=== PATIENT | male | born 1960 | race Caucasian/White ===

== ENCOUNTER 2020-08-31 15:20 | Outpatient (REF) | payer OTHER, SELFPAY ==
--- NOTE | 2020-08-31 15:24 | US_ITS ---
EXAMINATION: US RETROPERITONEAL LIMITED (RENAL ONLY) CLINICAL INFORMATION: Hematuria. COMPARISON: None TECHNIQUE: Real-time imaging of the kidneys. FINDINGS: RIGHT KIDNEY: 10.8 x 6.1 x 5.8 cm (SAG x AP x TRV). The kidney is normal in size, contour, and echogenicity. Renal cortical thickness is normal. No calculi or focal parenchymal lesions. No hydronephrosis. LEFT KIDNEY: 11.9 x 6.1 x 5.7 cm (SAG x AP x TRV). The kidney is normal in size, contour, and echogenicity. Renal cortical thickness is normal. No calculi or focal parenchymal lesions. No hydronephrosis. US/US renal BI IMPRESSION: Unremarkable kidney ultrasound.
== END 2020-08-31 15:21 | disposition home or self-care (01) ==
LOC: HO.HMGCX 15:20
PROVIDERS: PCP Internal Medicine; Visit Provider Internal Medicine
DX: R31.0 Gross hematuria (principal)
CPT/HCPCS: 76775

== ENCOUNTER → 2020-09-22 13:57 | Outpatient (BNVA) | payer OTHER, SELFPAY | PROVIDERS: PCP Internal Medicine; Visit Provider Urology | DX: R36.1 Hematospermia (principal); R31.9 Hematuria, unspecified | CPT/HCPCS: 81002 ==

== ENCOUNTER 2020-10-07 06:42 | Outpatient (REF) | payer OTHER, SELFPAY ==
[2020-10-07 11:42] LABS: Blood Urea Nitrogen 17 mg/dL (9-16); Estimated Glomerular Filt Rate > 60
== END 2020-10-07 06:43 | disposition home or self-care (01) ==
LOC: HO.HMGCLDS 06:42
PROVIDERS: PCP Internal Medicine; Visit Provider Urology
DX: R31.9 Hematuria, unspecified (principal)
CPT/HCPCS: 36415; 82565; 84520

== ENCOUNTER 2020-10-14 13:48 | Outpatient (REF) | payer OTHER, SELFPAY ==
--- NOTE | ~2020-10-14 | CT_ITS ---
EXAMINATION: CT ABDOMEN AND PELVIS WITHOUT AND WITH CONTRAST CLINICAL INFORMATION: Hematuria. COMPARISON: Renal ultrasound August 2020 TECHNIQUE: Multidetector volumetric imaging was performed of the abdomen and pelvis before and after the IV administration of 85 mL of Omnipaque 300 intravenous contrast. Sagittal and coronal reformatted images were obtained on the technologist's workstation. This CT examination was performed using dose optimization techniques as appropriate, variously including the following: *Automated exposure control *Adjustment of mA and/or kV according to patient size (this includes techniques or standardized protocols for targeted exams where dose is matched to indication/reason for exam; i.e. extremities or head) *Use of iterative reconstruction technique DLP: 1080 mGy-cm FINDINGS: LUNG BASES: The visualized lung bases are unremarkable. LIVER, GALLBLADDER, AND BILIARY TREE: The liver is normal in size, shape, and attenuation. No focal hepatic lesion or biliary ductal dilatation is present. The gallbladder is unremarkable with no evidence of radiopaque gallstones, gallbladder wall thickening, or obvious pericholecystic inflammatory changes. PANCREAS: Unremarkable. SPLEEN: Unremarkable. ADRENAL GLANDS: Unremarkable. KIDNEYS AND URETERS: The kidneys are normal in size, shape, and attenuation. No hydronephrosis, hydroureter, or calculi seen. No perinephric stranding. BLADDER: There are bilateral ureteroceles. The bladder is not optimally distended. There may be mild diffuse bladder wall thickening. No stone or mass is seen. GASTROINTESTINAL TRACT: The small and large bowel are unremarkable. The appendix is unremarkable. ABDOMINAL WALL: There is a small umbilical hernia containing fat. LYMPH NODES: Normal. VASCULAR: There is ectasia of the lower abdominal aorta measuring 2.8 x 3 cm in AP and transverse dimension. PELVIC VISCERA: Unremarkable. OSSEOUS STRUCTURES: Unremarkable. CT/CT abdomen pelvis wo/w con IMPRESSION: Bilateral ureteroceles. The bladder is not optimally distended, and there may be mild diffuse bladder wall thickening. Otherwise, unremarkable CT IVP. Small umbilical hernia containing fat. Slightly ectatic lower abdominal aorta.
[2020-10-14] MEDS: iohexoL 350 MG/ML 100 ML INFUS..BTL IV (14:49)
== END 2020-10-14 13:49 | disposition home or self-care (01) ==
LOC: HO.CT 13:48
PROVIDERS: Visit Provider Urology
DX: R31.9 Hematuria, unspecified (principal)
CPT/HCPCS: 74178; Q9967

== ENCOUNTER → 2020-10-20 11:47 | Outpatient (BNVA) | payer OTHER, SELFPAY | PROVIDERS: PCP Internal Medicine; Visit Provider Urology ==

== ENCOUNTER 2023-06-03 08:11 | Outpatient (REF) | payer BC, SELFPAY ==
[2023-06-03 14:33] LABS: MANUAL DIFF FLAG NO
[2023-06-03 14:44] LABS: Basophils Percent Auto 0.6 % (0-2); Eosinophils Absolute Auto 0.1 X10*3/uL (0.0-0.4); Eosinophils Percent Auto 1.7 % (0-4); Hematocrit 45.1 % (42.0-52.0); Hemoglobin 14.4 g/dl (14.0-18.0); Imm Gran Abs Auto 0.03 X10*3/uL (0.00-0.03); Imm Gran Pct Auto 0.6 % (0.0-0.4); Lymphocytes Absolute Auto 1.2 X10*3/uL (1.2-4.9); Lymphocytes Percent Auto 22.9 % (20-40); Mean Corpuscular HGB Conc 31.9 g/dl (31.0-36.0); Mean Corpuscular Hemoglobin 26.3 pg (27.0-33.0); Mean Corpuscular Volume 82.4 fL (80.0-98.0); Mean Platelet Volume 11.2 fL (9.4-12.4); Monocytes Absolute Auto 0.5 X10*3/uL (0.1-1.2); Monocytes Percent Auto 9.1 % (2-11); Neutrophils Absolute Auto 3.4 x10*3/uL (2.0-8.3); Neutrophils Percent Auto 65.1 % (45-73); Platelet Count 161 X10*3/uL (160-400); Red Blood Count 5.47 X10*6/uL (4.60-5.80); Red Cell Distribution Width 12.8 % (11.0-16.0); White Blood Count 5.2 X10*3/uL (4.8-10.8)
[2023-06-03 14:58] LABS: Alanine Aminotransferase 11 U/L (0-40); Alkaline Phosphatase 58 U/L (39-117); Anion Gap 15 (12-20); Aspartate Amino Transferase 12 U/L (5-37); Bilirubin Direct 0.3 mg/dL (0.0-0.5); Bilirubin Total 0.7 mg/dL (0.0-1.0); Blood Urea Nitrogen 14 mg/dL (9-16); Calcium 8.7 mg/dL (8.4-10.2); Carbon Dioxide 28 mmol/L (22-29); Chloride 96 mmol/L (96-108); Cholesterol 84 mg/dL (<200); Estimated Glomerular Filt Rate > 60; Glucose Fasting 181 mg/dL (60-99); HDL Cholesterol 28 mg/dL (>40); LDL Cholesterol Calculated 30 mg/dL (<100); Potassium 3.2 mmol/L (3.3-5.1); Sodium 136 mmol/L (135-145); Total Protein 7.1 g/dL (6.5-8.0); Triglycerides 132 mg/dL (<150)
[2023-06-03 15:10] LABS: Creatinine Urine 216.68 mg/dL; Microalbum/Creatinine Ratio Ur 91.8 ug/mg cr (<30)
== END 2023-06-03 08:12 | disposition home or self-care (01) ==
LOC: HO.CHCLDS 08:11
PROVIDERS: Visit Provider Internal Medicine
DX: E11.9 Type 2 diabetes mellitus without complications (principal)
CPT/HCPCS: 36415; 80048; 80061; 80076; 82043; 82570; 85025

== ENCOUNTER → 2023-06-04 13:52 | Outpatient (REF) | payer BC, SELFPAY ==
--- NOTE | 2023-06-04 13:55 | CA_ITS ---
Transthoracic Echocardiogram Patient (Last, First, Middle): Jeri Perez, Gender: Male Date of : 1960 Age: 62 Procedure Date: 06/04/2023 Procedure Type: Transthoracic Echocardiogram Location: OP Height: 187.96 cm Weight: 97.52 kg BSA: 2.24 m2 Heart Rate: bpm BP: 140 / 90 mmHg Sociology Teacher: TO Referring MD: Ryley Hirsch MD Symptoms: CAD W/O ANGINA I25.119 Study Quality: Adequate with contrast ECG Rhythm: Sinus Conclusions: - The left ventricular systolic function is normal. The visually estimated ejection fraction is between 60-65%. - There is severe septal asymmetric hypertrophy. - No obvious valvular pathology seen on this study. Findings Procedure Information Contrast agent, definity, is being given per protocol without apparent complications. Left Ventricle Normal left ventricular cavity size. There is mildly increased left ventricular wall thickness. The left ventricular systolic function is normal. The visually estimated ejection fraction is between 60-65%. There is no evidence of regional wall motion abnormalities. Evidence suggests grade I (mild) diastolic dysfunction. There is severe septal asymmetric hypertrophy. Right Ventricle Normal right ventricular cavity size and systolic function. Atria Both atria are normal in size. Aortic Valve There is a normal trileaflet aortic valve. There is mild calcification of the aortic valve. There is no aortic valve stenosis. There is no aortic valve regurgitation. Mitral Valve The mitral valve appears normal. There is no mitral valve regurgitation. There is no mitral valve stenosis. Pulmonic Valve The pulmonic valve is likely normal. Tricuspid Valve There is no tricuspid valve regurgitation. Tricuspid regurgitation envelope is inadequate for calculation of right ventricular systolic pressure. Great Vessels The asc aorta is normal in size. Venous The inferior vena cava is normal in size and collapses greater than 50% with inspiration. Pericardium/Pleural There is no evidence of pericardial effusion. Prior Study Comparison Changes noted compared to prior study dated: 10/06/2016. see comment on [facility]. Recommendations, Care & Conclusions No obvious valvular pathology seen on this study. Measurements 2D Linear Measurements IVSd: 1.50 0.6-0.9/0.6-1.0 cm LVIDd: 5.40 3.9-5.3/4.2-5.9 cm LVIDd Index: 2.41 2.4-3.2/2.2-3.1 cm/m2 LVIDs: 4.00 2.0-3.6 cm LVPWd: 1.10 0.7-1.1 cm LA Diam: 3.90 2.7-3.8/3.0-4.0 cm LAIDs Index: 1.74 1.5-2.3 cm/m2 LV Mass: 368.72 67-162/88-224 g LV Mass Index: 164.61 43-95/49-115 g/m2 LVOT Diam: 2.20 3.0+(-)1.3 cm 2D Systolic Function EF 4C: 63.80 >55% Mitral Valve MV Pk E: 0.54 MV PK A: 0.81 MV Decel Time: 279.00 E/A: 0.70 E'Lateral: 6.20 E'Medial: 4.24 E/E' Med: 12.80 E/E' Lat: 8.80 PHT: 82.00 MVA PHT: 2.68 Decel [place]: 1.95 Aortic Valve AoV Pk [place]: 1.54 AoV Mn [place]: 0.88 AoV VTI: 0.26 AoV Pk Grad: 9.00 Aov Mn Grad: 4.00 MOHAN Cont.VTI: 2.73 LVOT LVOT Pk [place]: 0.86 LVOT Mn [place]: 0.55 LVOT VTI: 0.19 LVOT Pk Grad: 3.00 LVOT Mn Grad: 1.00 LVOT Diam: 2.20 LVOT Area: 3.80 Diastolic Function MV Pk E: 0.54 MV Pk A: 0.81 E/A: 0.70 E'Medial: 4.24 E/E' Med: 12.80 E' Laterial: 6.20 E/E' Lat: 8.80 Right Ventricle TAPSE (mm): 19.80 TVS' [place]: 10.30 Tricuspid Valve RA Press: 3.00 Great Vessels Aorta Sinus of Valsalva: 3.50 2.0-3.[address] [place]: 2.30 1.7-3.4 cm Ao Asc: 3.40 2.1-3.4 cm Updated in Other Vendor System with Status of Final Matt Griggs MD electronically signed on 06/05/2023 4:20:17 PM with status of Final
== END ==
LOC: HO.CARD 13:52
PROVIDERS: PCP Internal Medicine; Visit Provider Internal Medicine
DX: I25.119 Atherosclerotic heart disease of native coronary artery with unspecified angina pectoris (principal)
CPT/HCPCS: 93306; Q9957

== ENCOUNTER → 2023-06-04 13:55 | Outpatient (BNV) | payer BC, SELFPAY | PROVIDERS: PCP Internal Medicine; Visit Provider Internal Medicine | DX: I25.119 Atherosclerotic heart disease of native coronary artery with unspecified angina pectoris (principal) | CPT/HCPCS: 93306 ==

== ENCOUNTER 2023-06-26 08:52 | Outpatient (AMB) | payer BC, SELFPAY ==
--- NOTE | 2023-06-26 09:06 | A.OFFVIS_ITS ---
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 He has background history of tobacco use, moderate alcohol use, previous [place] and cardiac catheterization 2005. I reviewed his angiogram from 2005 when he apparently presented with chest pain and was told that he had mild heart attack. He had code dominant circulation with mild proximal RCA stenosis. He had diffuse disease in branches including obtuse marginal and focal area of 70% stenosis in a small OM2. He said he was told to be medically treated at that time. He also is diabetic and is currently taking metformin 5 mg twice a day. He had echocardiogram performed which is showing normal LVEF but severe septal hypertrophy was noted. He had 1 incident recently where he was sitting with his drinking beer when he suddenly tilted the bottle to word his and could not control it and then fell to the ground with a blank stare and the could not wake him up. No seizure-like activity was noted. She said she did not check the pulse. She said he came to senses quite soon and was not confused and remembered where he was. This is only episode that has happened so far. He does not recall having any palpitations. He has been getting chest discomfort off and on along with shortness of breath. These episodes are random and occasionally happen when he is under stress. As mentioned he had coronary disease based on angiography in 2005. He also had some episodes of hematuria along with blood in semen and had seen Urology. He is taking baby aspirin currently. He was told that nothing significant was found on his testing. He also has Raynaud's and has been experiencing some discoloration in his fingertips as the weather is changing. He is saying that this is getting worse over the last few years. He has a nicotine patch on him and is currently trying to quit smoking again. He said he quit for 6 months from September to January but then had a stressful event and started smoking in unfortunately. [facility] Medical History (Updated 06/26/23 @ 10:09 by Juni Hobson MD) Hematuria Hematospermia HTN (hypertension) CAD (coronary artery disease) Diabetes mellitus Family History (Updated 06/26/23 @ 09:11 by Maryam Harp) Brother Heart attack Sister Heart attack Mother No problems noted. Social History (Updated 06/26/23 @ 09:11 by Maryam Harp) Patient Tobacco Use Status: Current everyday Tobacco user Tobacco use type: Cigarette Cigarette Packs Per Day: 0.5 Cigarettes Per Day: 10 Physical Exam Vital Signs: Last Vital Signs Pulse 66 06/26/23 09:07 BP 114/70 06/26/23 09:07 BMI result Body Mass Index 26.6 GENERAL APPEARANCE: in no acute distress, pleasant. NECK: no carotid bruit, no jugular venous distention. SKIN: no suspicious lesions, warm and dry. HEART: no murmurs, regular rate and rhythm. LUNGS: clear to auscultation bilaterally. ABDOMEN: soft, nontender. EXTREMITIES: no edema. PERIPHERAL PULSES: equal. NEUROLOGIC: No gross deficits, AAO X 3 Office Procedures EKG Details: NSR 66/min, Normal axis, possible inferior infarct, QTc 427 msec. [id number], Complete Assessment & Plan Assessment & Plan (1) Chest pain: Code(s): R07.9 - Chest pain, unspecified (2) Asymmetric septal hypertrophy: Code(s): I42.2 - Other hypertrophic cardiomyopathy (3) CAD (coronary artery disease): Code(s): I25.10 - Atherosclerotic heart disease of [place] coronary artery without angina pectoris (4) Syncope: Code(s): R55 - Syncope and collapse Plan 62-year-old gentleman who is here for 1st office visit. He had cardiac catheterization from many years ago when severe OM stenosis noted as well as diffuse side branch disease. He was advised to be medically treated at that time. He has been experiencing chest pains off and on. Physical he is not active. He gets shortness of breath and dyspnea whenever these episodes happen. He has not been to the emergency department for these episodes. His echocardiogram is showing normal LV function and severe asymmetric septal hypertrophy. His blood pressure is well controlled currently but as per the patient and it was quite difficult to control in the past. I have discussed with him that given his chest pains and known coronary disease we should pursue repeat angiogram. Also will do a cardiac event monitor to rule out any arrhythmia given severe size asymmetric septal hypertrophy and episode of syncope recently. I will also arrange cardiac MRI to assess for any late gadolinium enhancement in the septum or inferolateral wall. He will continue aspirin and atorvastatin currently. He said he had lipid panel done recently which will be sent to our office. Thank you for allowing me to participate in the care of your patient. Please feel free to contact me if you have any questions. Orders: Orders Basic Metabolic Panel Today I42.2 - Other hypertrophic cardiomyopathy Complete Blood Count no Diff Today I42.2 - Other hypertrophic cardiomyopathy Prothrombin Time INR Today I42.2 - Other hypertrophic cardiomyopathy Cardiac Cath LT Diagnostic Today I25.10 - Atherosclerotic heart disease of [place] coronary artery without angina pectoris MR cardiac morph fnct w con Today I42.2 - Other hypertrophic cardiomyopathy ECG 30 day event monitor Today I42.2 - Other hypertrophic cardiomyopathy Coding Level of Care Code New Pt Level 5 (90173) Diagnoses Chest pain R07.9 Asymmetric septal hypertrophy I42.2 CAD (coronary artery disease) I25.10 Syncope R55 CPT Codes EKG - CPT: 03718-[id number], Complete ([id number])
[2023-06-26 09:07] VITALS: BP 114/70; PULSE 66; BMI 26.6
== END 2023-06-26 10:00 | disposition home or self-care (01) ==
PROVIDERS: PCP Internal Medicine; Visit Provider Internal Medicine Cardiovascular Disease
DX: R07.9 Chest pain, unspecified (principal); I42.2 Other hypertrophic cardiomyopathy; I25.10 Atherosclerotic heart disease of native coronary artery without angina pectoris; R55 Syncope and collapse; R94.31 Abnormal electrocardiogram [ECG] [EKG]
CPT/HCPCS: 93010; 99204

== ENCOUNTER 2023-06-26 08:52 | Outpatient (REF) | payer BC, SELFPAY ==
[2023-06-26 14:14] LABS: Mean Corpuscular HGB Conc 33.3 g/dl (31.0-36.0); Mean Corpuscular Hemoglobin 26.5 pg (27.0-33.0); Mean Corpuscular Volume 79.4 fL (80.0-98.0); Mean Platelet Volume 10.2 fL (9.4-12.4); Platelet Count 165 X10*3/uL (160-400); Red Blood Count 5.67 X10*6/uL (4.60-5.80); Red Cell Distribution Width 13.2 % (11.0-16.0); White Blood Count 5.8 X10*3/uL (4.8-10.8)
[2023-06-26 14:24] LABS: INTERNATIONAL NORM RATIO 0.9 (0.9-1.1); Prothrombin Time 10.9 SEC (11.1-13.3)
[2023-06-26 15:07] LABS: Anion Gap 15 (12-20); Blood Urea Nitrogen 12 mg/dL (9-16); Calcium 9.6 mg/dL (8.4-10.2); Carbon Dioxide 31 mmol/L (22-29); Chloride 94 mmol/L (96-108); Estimated Glomerular Filt Rate > 60; Glucose Random 305 mg/dL (60-115); Potassium 3.7 mmol/L (3.3-5.1); Sodium 136 mmol/L (135-145)
== END 2023-06-26 08:53 | disposition home or self-care (01) ==
LOC: HO.LAB 08:52
PROVIDERS: PCP Internal Medicine; Referring Provider Internal Medicine Cardiovascular Disease; Visit Provider Internal Medicine Cardiovascular Disease
DX: R07.9 Chest pain, unspecified (principal); I25.10 Atherosclerotic heart disease of native coronary artery without angina pectoris; I42.2 Other hypertrophic cardiomyopathy; R55 Syncope and collapse
CPT/HCPCS: 36415; 80048; 85027; 85610; 93005

== ENCOUNTER → 2023-07-03 10:48 | Outpatient (REF) | payer BC, SELFPAY ==
--- NOTE | 2023-07-03 10:53 | HM_ITS ---
Cardiac event monitor Indication is hypertension Technique: Patient was hooked up to cardiac event monitor on 07/03/2023 for total period of 30 days with compliance rate of 75.6% Findings: Baseline was normal sinus rhythm with heart rate in normal range was 76% of time. No significant tachycardia noted. No significant pauses noted. There were no significant arrhythmias detected. AV conduction appeared satisfactory. Patient pressed the button 3 times, reporting 1 symptom of left arm responding slowly correlating with sinus rhythm Conclusion: 1. Baseline was normal sinus rhythm with no significant arrhythmias or pauses 2. Patient reported symptoms correlated with sinus rhythm MTDD
== END ==
LOC: HO.CARD 10:48
PROVIDERS: PCP Internal Medicine; Visit Provider Internal Medicine Cardiovascular Disease
DX: I42.2 Other hypertrophic cardiomyopathy (principal); R00.1 Bradycardia, unspecified
CPT/HCPCS: 93270

== ENCOUNTER → 2023-07-03 10:53 | Outpatient (BNV) | payer BC, SELFPAY | PROVIDERS: PCP Internal Medicine; Visit Provider Internal Medicine Cardiovascular Disease | DX: I42.2 Other hypertrophic cardiomyopathy (principal) | CPT/HCPCS: 93272 ==

== ENCOUNTER → 2023-07-16 23:59 | Outpatient (BNV) | payer BC, SELFPAY | PROVIDERS: PCP Internal Medicine; Visit Provider Internal Medicine Cardiovascular Disease | DX: R93.1 Abnormal findings on diagnostic imaging of heart and coronary circulation (principal); I20.89 Other forms of angina pectoris; I25.118 Atherosclerotic heart disease of native coronary artery with other forms of angina pectoris | CPT/HCPCS: 92928; 92978; 93458; 93571; 99152 ==

== ENCOUNTER 2023-07-31 12:43 | Outpatient (REF) | payer BC, SELFPAY ==
--- NOTE | 2023-07-31 | EEG_ITS ---
This is a 16-channel EEG with an EKG lead. Background EEG rhythm is about 10 hertz, 5 to 20 microvolt posteriorly, lower amplitude fast anteriorly. Photic stimulation does not produce any significant abnormality. A few brief episodes of bilateral, somewhat more pronounced in left hemisphere than right, theta range slowing were noted, lasting for half a second to a second and a half. No definite sharp wave or spike was noted. Cardiac lead did not reveal any significant abnormality. Hyperventilation was not performed. IMPRESSION: Mildly abnormal EEG raising suspicion for partial seizure disorder, though not definitively providing enough evidence. If seizure disorder is suspected, long-term ambulatory EEG can be considered or a formal neurology consultation can be considered. MD SARITHA Tracy/NICOLAS / [phone]
== END 2023-07-31 12:44 | disposition home or self-care (01) ==
LOC: HO.NEURO 12:43
PROVIDERS: PCP Internal Medicine; Visit Provider Internal Medicine
DX: R41.89 Other symptoms and signs involving cognitive functions and awareness (principal)
CPT/HCPCS: 95816

== ENCOUNTER 2023-08-05 10:08 | Outpatient (AMB) | payer BC, SELFPAY ==
[2023-08-05 10:14] VITALS: BP 120/72; BMI 27.0
--- NOTE | 2023-08-05 10:14 | MHC.OFFVIS ---
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 He underwent a cardiac event monitor and cardiac catheterization and now presents for follow-up. He had RONALD placed to the proximal LAD. Today he reports that he continues to have shortness of breath with activity. He has not had any recurrent episodes of chest discomfort since his stent placement. He denies any heart palpitations, presyncope, syncope, falls. No PND, orthopnea or edema. His right radial catheterization site is healing well. He has not had his cardiac MRI yet. No active bleeding issues reported. He has had hematuria in the past and follows with Urology. Taking all meds as directed. is present. [facility] Medical History (Updated 08/05/23 @ 11:47 by SORAYA Wright) Hematuria Hematospermia HTN (hypertension) CAD (coronary artery disease) Diabetes mellitus Family History Brother Heart attack Sister Heart attack Mother No problems noted. Social History Patient Tobacco Use Status: Current everyday Tobacco user Tobacco use type: Cigarette Cigarette Packs Per Day: 0.5 Cigarettes Per Day: 10 Review of Systems Const All systems reviewed & are unremarkable except as noted in HPI and below ENT Denies dizziness Card Denies chest pain, Denies chest pain at rest, Denies chest pain with activity, Denies rapid heart rate, Denies pedal edema, Denies edema, Denies leg edema, Denies lightheadedness, Denies palpitations, Reports dyspnea, Reports dyspnea on exertion and Denies orthopnea Resp Denies cough, Reports dyspnea and Reports dyspnea on exertion GI Denies hematochezia and Denies change in stool character Musc Denies abnormal gait, Denies limited range of motion, Denies muscle cramps, Denies muscle weakness, Denies numbness, Denies radiating pain into limb, Denies stiffness and Denies tingling Neuro Denies abnormal gait, Denies dizziness, Denies numbness and Denies tingling Endo Denies palpitations Physical Exam Vital Signs: Last Vital Signs BP 120/72 08/05/23 10:14 BMI result Body Mass Index 27.0 Const General: cooperative, healthy appearing, comfortable and no acute distress Orientation/consciousness: patient oriented x3 Neck Neck: Yes normal visual inspection Resp Effort & Inspection: normal respiratory effort Auscultation: clear to auscultation bilaterally, no rales, no rhonchi and no wheezes Cardio Jugular venous distension: no JVD Rate: regular rate Rhythm: regular rhythm Heart sounds: S1 normal heart sound present, S2 normal heart sound present, no murmurs and no rubs Neuro General: patient oriented x3 Extrem Other: right radial cath site healing well. easily palpable radial pulse. Hand with normal mobilityy and sensation General: Yes normal to inspection Psych Appearance: grossly normal Mental Status: mental status grossly normal Speech and movement: Normal speech and movement present Assessment & Plan Assessment & Plan (1) Chest pain: Code(s): R07.9 - Chest pain, unspecified Plan: Reports of intermittent chest discomfort on last visit. He has known history of coronary artery disease with remote coronary stenting. An echocardiogram was done on 06/04/2023 showed EF normal, severe asymmetric septal hypertrophy. He underwent cardiac catheterization for further evaluation. Catheterization showed significant three-vessel coronary artery disease. IFR to the mid circumflex 0.95. Proximal LAD 70% stenosis with IFR 0.79. He had angioplasty and stent placement. He was put on Brilinta 90 mg b.i.d. to be uninterrupted for 1 year. He is on aspirin indefinitely. He will continue on metoprolol and atorvastatin with ideal LDL goal less than 70. Today he reports no recurrent chest discomfort since his stent placement. He does have shortness of breath with activity which is unchanged. He does not engage in any routine exercise. He declines cardiac rehab. He is able to walk the length of his driveway and back which is 500 yd which he says he tolerates well. Encouraged to increase physical activity and notify us if any concerning symptoms. Reviewed catheterization report with him in detail. Dr. Hobson also came into the room to discuss catheterization findings and treatment plan. Continue medications without change. Cardiology follow-up 3 months, sooner if needed. (2) CAD (coronary artery disease): Code(s): I25.10 - Atherosclerotic heart disease of [place] coronary artery without angina pectoris Plan: As above (3) S/P cardiac cath: Comment: Cardiac catheterization 07/16/2023, proximal LAD 70% stenosis, IF are 0.79, RONALD placed, mid LAD 50% stenosis, left circumflex and mid 70% stenosis, IF are 0.95, mid RCA distal subsection 90% stenosis, proximal RCA mid subsection 80% stenosis -diffuse disease Code(s): Z98.890 - Other specified postprocedural states Plan: Right radial catheterization site healing well (4) Asymmetric septal hypertrophy: Code(s): I42.2 - Other hypertrophic cardiomyopathy Plan: Recent echo showing severe asymmetric septal hypertrophy. He describes having an episode of unresponsiveness prior to last visit. A cardiac event monitor done on 07/03/2023 showed sinus rhythm with heart rate range 49 to 104, rare SVE and VE. An EEG done on 07/31/2023 is mildly abnormal raising suspicion for partial seizure disorder. Cardiac MRI had been ordered to evaluate cardiac muscle. Per Dr Hobson will cancel MRI at this time as his unresponsive type episode was more likely related to seizure activity then ventricular ectopy. Will refer to Neurology for further evaluation. Blood pressure is currently well controlled. He tells me blood pressures are elevated at home however reading today initially 120/72 and recheck done by me 136/82. No med changes made (5) Syncope: Code(s): R55 - Syncope and collapse Plan: As above Orders: Referrals Neurology Referral R56.9 - Unspecified convulsions, R94.01 - Abnormal electroencephalogram [EEG] Coding Level of Care Code Est Pt Level 4 (50389) Diagnoses Chest pain R07.9 CAD (coronary artery disease) I25.10 S/P cardiac cath Z98.890 Asymmetric septal hypertrophy I42.2 Syncope R55 Time Spent (min) 35
== END 2023-08-05 11:09 | disposition home or self-care (01) ==
PROVIDERS: PCP Internal Medicine; Visit Provider Nurse Practitioner Family
DX: R07.9 Chest pain, unspecified (principal); I25.10 Atherosclerotic heart disease of native coronary artery without angina pectoris; Z98.890 Other specified postprocedural states; I42.2 Other hypertrophic cardiomyopathy; R55 Syncope and collapse
CPT/HCPCS: 99214

== ENCOUNTER → 2023-08-05 10:08 | Outpatient (BNVA) | payer BC, SELFPAY | PROVIDERS: PCP Internal Medicine; Visit Provider Nurse Practitioner Family ==

== ENCOUNTER 2023-09-26 14:03 | Outpatient (REF) | payer BC, SELFPAY ==
[2023-09-27 11:59] LABS: Free Prostate Spec Ag 0.2 ng/mL; Percent Free Prostate Spec Ag 33 % (calc) (>25); Prostate Specific Ag Total 0.6 ng/mL (< OR = 4.0)
== END 2023-09-26 14:04 | disposition home or self-care (01) ==
LOC: HO.CHCLDS 14:03
PROVIDERS: Visit Provider Internal Medicine
DX: Z12.5 Encounter for screening for malignant neoplasm of prostate (principal); R63.4 Abnormal weight loss
CPT/HCPCS: 36415; 84154